=== PATIENT | female | born 1970 | race Caucasian/White ===

== ENCOUNTER 2016-03-10 10:18 | Emergency (ER) | payer OTHER ==
[~2016-03-10] VITALS: Ht 175.3 cm; Wt 102.1 kg
--- NOTE | 2016-03-10 11:16 | ED INFLUENZA/URI COMPLAINT ---
History of Present Illness General Chief Complaint: General Adult Stated Complaint: SICK X 3 DAYS Source: patient Exam Limitations: no limitations Vital Signs & Intake/Output Vital Signs & Intake/Output Vital Signs Date Time Temp Pulse Resp B/P Pulse O2 O2 Flow FiO2 Ox Delivery Rate 03/10 1308 77 16 135/78 96 Room Air 03/10 1150 98.0 80 20 114/63 96 Room Air 03/10 1120 Room Air 03/10 1031 96.9 66 20 127/74 98 Room Air Allergies Coded Allergies: No Known Allergies (03/10/16) Reconcile Medications Amoxicillin/Potassium Clav (Augmentin 875-125 Tablet) 875 MG-125 MG TABLET 1 TAB PO BID SINUSITIS Insulin Lispro (Humalog) 100 UNIT/ML CARTRIDGE PUMP (Reported) Levothyroxine Sodium 75 MCG TABLET 1 TAB PO DAILY AC THYROID (Reported) Liothyronine Sodium 5 MCG TABLET 1 TAB PO DAILY AC THYROID (Reported) Mometasone Furoate (Nasonex) 50 MCG SPRAY.PUMP 2 SPRAY NASB DAILY CONGESTION Pregabalin (Lyrica) 50 MG CAPSULE 1 CAP PO BID PAIN (Reported) Triage Note: PT TO ED C/O NAUSEA AND LETHARGY X 1 WEEK. DENIES VOMITING. C/O DIARRHEA. AFEBRILE. DENIES S/S. Triage Nurses Notes Reviewed? yes Onset: Abrupt Duration: week(s): (1), constant, continues in ED Timing: recent history Severity: moderate, severe No Modifying Factors: none HPI: 45-year-old female comes into emergency room for further evaluation of sore throat, nausea, fatigue, runny nose and nasal congestion that has been going on for the past week. Denies any fever. Denies any vomiting. Denies any sick contacts. Denies any cough or mucus production. Denies any other associated symptoms. Nothing seems to make the symptoms better or worse. (CARLEY GARCIA) Past History Travel History Traveled to [place] past 21 day No Medical History Any Pertinent Medical History? see below for history Endocrine: diabetes, hypothyroidism Surgical History Surgical History: , laminectomy Psychosocial History What is your primary language Romanian Tobacco Use: Never used ETOH Use: denies use Illicit Drug Use: denies illicit drug use Family History Hx Contributory? No (CARLEY GARCIA) Review of Systems Review of Systems Constitutional: Reports: see HPI. EENTM: Reports: see HPI. Respiratory: Reports: see HPI. Cardiovascular: Reports: no symptoms. GI: Reports: no symptoms. Genitourinary: Reports: no symptoms. Musculoskeletal: Reports: no symptoms. Skin: Reports: no symptoms. Neurological/Psychological: Reports: no symptoms. Hematologic/Endocrine: Reports: no symptoms. Immunologic/Allergic: Reports: no symptoms. All Other Systems: Reviewed and Negative (CARLEY GARCIA) Physical Exam Physical Exam General Appearance: well developed/nourished, no apparent distress, alert Head: atraumatic, normal appearance Eyes: Bilateral: normal appearance, EOMI. Ears, Nose, Throat: normal ENT inspection, moist mucous membrane Neck: normal inspection, full range of motion Respiratory: normal breath sounds, no respiratory distress Cardiovascular: regular rate/rhythm Gastrointestinal: normal bowel sounds, soft Back: normal inspection Extremities: normal inspection, normal range of motion Neurologic/Psych: awake, alert, oriented x 3, normal gait, normal mood/affect Skin: intact, normal color Core Measures Severe Sepsis Present: No Septic Shock Present: No (CARLEY GARCIA) Progress Differential Diagnosis: influenza, meningitis, neutropenia, otitis, pneumonia, pharyngitis, sinusitis Plan of Care: Orders Procedure Date/time Status THROAT CULTURE W/QUICK STREP 03/10 1131 Active URINE 03/10 1115 Complete URINALYSIS 03/10 1114 Complete MAGNESIUM 03/10 1114 Complete MONOSPOT 03/10 1114 Complete COMPREHENSIVE METABOLIC PANEL 03/10 1114 Complete CBC WITHOUT DIFFERENTIAL 03/10 1114 Complete Laboratory Tests 03/10/16 1129: Anion Gap 8, Estimated GFR > 60, BUN/Creatinine Ratio 16.7, Glucose 201 H, Calcium 9.4, Magnesium 1.8, Total Bilirubin 0.5, AST 18, ALT 29, Alkaline Phosphatase 55, Total Protein 7.2, Albumin 4.2, Globulin 3.0, Albumin/Globulin Ratio 1.4, CBC w Diff NO MAN DIFF REQ, RBC 4.68, MCV 80.7 L, MCH 27.1, RDW 14.7 H, MPV 8.1, Gran % 58.5, Lymphocytes % 32.8, Monocytes % 6.2, Eosinophils % 2.0 , Basophils % 0.5, Absolute Granulocytes 4.6, Absolute Lymphocytes 2.6, Absolute Monocytes 0.5, Absolute Eosinophils 0.2, Absolute Basophils 0, PUBS MCHC 33.7, Infectious [place] Titer NEGATIVE 03/10/16 1122: Urine Test NEGATIVE 03/10/16 1122: Urine Color YEL, Urine Clarity CLEAR, Urine pH 6.0, Ur Specific [place] 1.010, Urine Protein NEG, Urine Ketones NEG, Urine Nitrite NEG, Urine Bilirubin NEG, Urine Urobilinogen 0.2, Ur Leukocyte Esterase NEG, Ur Microscopic EXAM NOT REQUIRED, Urine Hemoglobin NEG, Urine Glucose 250 H Initial ED EKG: none Comments: 03/10/2016 1:27:39 PM Patient clinically looks well. Nontoxic-appearing. Symptoms are likely most consistent with a viral illness. Due to patient's comorbidities blood work sent. Blood work within normal limits. Patient is to follow-up with her primary care doctor. Patient recently had her thyroid function checked and it was normal. Return to emergency room immediately if any other concerns worsening symptoms. Patient understands and agrees with plan of care. (NERI STOUT,CARLEY) Departure Departure Disposition: HOME OR SELF CARE Condition: Stable Clinical Impression Primary Impression: Sinusitis Referrals: JAIRO MANDUJANO MD (PCP/Family) [facility]erred to [facility] as new patient No Additional Instructions: Take Augmentin as prescribed. Use Nasonex as prescribed. Follow-up with primary care doctor. Return if any concerns worsening symptoms. Please go over all results of today's visit with your primary care doctor. Contact your primary care doctor to let them know you were here in the emergency room. There may be nonspecific findings which may not be related to your visit today here in the emergency room but may require further evaluation and chronic monitoring by your primary care doctor. If you had a laceration today the chance of foreign body always remains. You should follow-up with your primary care doctor for recheck in 3-5 days for a wound check. If you had an x-ray done there is a chance that a fracture could have been missed on initial read and you should follow-up with your primary care doctor for repeat x-rays if symptoms persist. If your blood pressure was elevated here in the emergency room please have rechecked by her primary care doctor within the next 48 hours by your primary care doctor. If you were prescribed a narcotic here in the emergency room or any type of controlled substances you're not allowed to drive while taking this medication or operate any type of heavy machinery. Narcotics can make you feel lightheaded dizziness nausea and can cause constipation. You may need to pickle maker a stool softener. Thank you for choosing [facility] emergency room. Please return to the emergency room immediately if you have any other concerns worsening of symptoms. Departure Forms: Customer Survey General Discharge Information Prescriptions: Current Visit Scripts Amoxicillin/Potassium Clav (Augmentin 875-125 Tablet) 1 TAB PO BID #20 TAB Mometasone Furoate (Nasonex) 2 SPRAY NASB DAILY #1 INHAL (CARLEY GARCIA) PA/TWISTER OPERATOR Co-Sign Statement Statement: ED Attending supervision documentation- [] I saw and evaluated the patient. I have also reviewed all the pertinent lab results and diagnostic results. I agree with the findings and the plan of care as documented in the PA's/TWISTER OPERATOR's documentation. [X] I have reviewed the ED Record and agree with the PA's/TWISTER OPERATOR's documentation. [] Additions or exceptions (if any) to the PAs/TWISTER OPERATOR's note and plan are summarized below: [] (CHEPE JOSEPH DO
[2016-03-10 11:36] LABS: ABSOLUTE BASOPHIL COUNT 0 /CUMM (0.0-0.2); ABSOLUTE EOSINOPHIL COUNT 0.2 /CUMM (0.0-0.7); ABSOLUTE GRANULOCYTE CT 4.6 /CUMM (1.4-6.5); ABSOLUTE LYMPH COUNT 2.6 /CUMM (1.2-3.4); ABSOLUTE MONOCYTE COUNT 0.5 /CUMM (0.10-0.60); BASOPHIL % 0.5 % (0.0-2.0); GRANULOCYTE % 58.5 % (42.2-75.2); HEMATOCRIT 37.8 % (37-47); MEAN CORPUSCULAR HGB 27.1 PG (27.0-31.0); MEAN CORPUSCULAR HGB CONC 33.7 G/DL (33.0-37.0); MEAN CORPUSCULAR VOLUME 80.7 FL (81.0-99.0); MEAN PLATELET VOLUME 8.1 FL (7.4-10.4); PLATELET COUNT 277 /CUMM (130-400); RBC DISTRIBUTION WIDTH 14.7 % (11.5-14.5); RED BLOOD CELL CT 4.68 /CUMM (4.20-5.40); WHITE BLOOD CELL COUNT 7.9 /CUMM (4.8-10.8)
[2016-03-10] MEDS ORDERED: LIOTHYRONINE SO5 MC1 PO (11:48)
[2016-03-10] MEDS ORDERED: HUMALOG100 UNIT/1 (11:48)
[2016-03-10] MEDS ORDERED: LEVOTHYROXINE75 MCG PO (11:48)
[2016-03-10] MEDS ORDERED: LYRICA50 M1 PO (11:48)
[2016-03-10] MEDS ORDERED: AUGMENTIN 875-1 EACH PO (12:52)
[2016-03-10] MEDS ORDERED: NASONEX17 GM NASB (12:52)
[2016-03-10 13:08] VITALS: BP 135/78
== END 2016-03-10 13:09 ==
LOC: ERH 10:18
PROVIDERS: Physician Assistant Medical
DX: J32.9 Chronic sinusitis, unspecified (principal); R11.0 Nausea; R53.83 Other fatigue
CPT/HCPCS: 81003; 81025